=== PATIENT | male | born 1955 | race African-American/Black ===

== ENCOUNTER 2017-01-18 08:35 | Inpatient (IN) | payer OTHER ==
[2017-01-18 09:04] VITALS: BMI 20.3
--- NOTE | 2017-01-18 10:21 | HP ---
Admission [facility] Chief Complaint: I am here to go to rehab and try my best to stay sober. Allergies/Adverse Reactions: Allergies Allergy/AdvReac Type Severity Reaction Status Date / Time Penicillins Allergy Severe Rash Verified 01/18/17 10:02 History of Present Illness: Pt is a 61yr old male with a history of alcohol dependence last drink was three days ago and is here now for rehab. Exam Limitations: Physical Impairment (chronic back pain) - Ebola screening Have you traveled outside of the country in the last 21 days: No Have you had contact with anyone from an Ebola affected area: No Have you been sick,other than usual withdrawal symptoms: No Do you have a fever: No - Review of Systems Constitutional: Loss of Appetite, Changes in sleep, Unintentional Wgt. Loss EENT: reports: No Symptoms Reported Respiratory: reports: No Symptoms reported Cardiac: reports: Syncope (black out) GI: reports: No Symptoms Reported : reports: No Symptoms Reported Musculoskeletal: reports: Back Pain Integumentary: reports: No Symptoms Reported Neuro: reports: Headache Endocrine: reports: No Symptoms Reported Hematology: reports: No Symptoms Reported Psychiatric: reports: Judgement Intact, Mood/Affect Appropiate, Orientated x3 Other Systems: Reviewed and Negative Patient History - Patient Medical History Hx Anemia: No Hx Asthma: No Hx Chronic Obstructive Pulmonary Disease (COPD): No Hx Cancer: No Hx Cardiac Disorders: No Hx Congestive Heart Failure: No Hx Hypertension: Yes (non compliant with meds.) Hx Hypercholesterolemia: No Hx Pacemaker: No HX Cerebrovascular Accident: No Hx Seizures: No Hx Dementia: No Hx Diabetes: No Hx Gastrointestinal Disorders: No Hx Liver Disease: No Hx Genitourinary Disorders: No Hx Sexually Transmitted Disorders: No Hx Renal Disease (ESRD): No Hx Thyroid Disease: No Hx Human Immunodeficiency Virus (HIV): No (negative) Hx Hepatitis C: (negative) Hx Depression: Yes Hx Suicide Attempt: No (denies) Hx Bipolar Disorder: No Hx Schizophrenia: No - Patient Surgical History Past Surgical History: Yes Other Surgical History: benign tumors removed from r shoulder and r hand. - PPD History Previous Implant?: Yes Documented Results: Negative w/o proof Implanted On Prior R Admission?: No PPD to be Administered?: Yes - Reproductive History Patient is a Female of Child Bearing Age (11 -55 yrs old): No - Smoking Cessation Smoking history: Former smoker Have you smoked in the past 12 months: No If you are a former smoker, when did you quit?: 1989 Hx Chewing Tobacco Use: No Initiated information on smoking cessation: No - Substance & Tx. History Hx Alcohol Use: Yes Hx Substance Use: No Substance Use Type: Alcohol Hx Substance Use Treatment: Yes (last detox at [facility] a year ago. ) - Substances Abused Alcohol Route: Oral Frequency: Daily Amount used: 1/2 pint vodka Age of first use: 12 Date of Last Use: 01/15/17 Family Disease History - Family Disease History Family Disease History: Heart Disease: Father (depression), Mother (depression) , Other: Father, Mother Admission Physical Exam [facility] - Vital Signs Vital Signs: Vital Signs - 24 hr 01/18/17 09:01 Temperature 97.3 F L Pulse Rate 69 Respiratory 18 Rate Blood Pressure 174/107 - Physical General Appearance: Yes: Appropriately Dressed, Moderate Distress, Thin, Anxious HEENTM: Yes: Hearing grossly Normal, Normal Voice Respiratory: Yes: Lungs Clear, Normal Breath Sounds, No Respiratory Distress Neck: Yes: No masses,lesions,Nodules Breast: Yes: Within Normal Limits Cardiology: Yes: Regular Rhythm, Regular Rate, S1, S2 Abdominal: Yes: Normal Bowel Sounds, Non Tender, Soft Genitourinary: Yes: Within Normal Limits Back: Yes: Normal Inspection Musculoskeletal: Yes: Back pain Extremities: Yes: Normal Inspection Neurological: Yes: Fully Oriented, Alert, Normal Response Integumentary: Yes: Normal Color Lymphatic: Yes: Within Normal Limits - Diagnostic (1) Alcohol dependence Current Visit: Yes Status: Chronic Qualifiers: Substance use status: uncomplicated Qualified Code(s): F10.20 - Alcohol dependence, uncomplicated (2) Hypertension Current Visit: Yes Status: Chronic Qualifiers: Hypertension type: essential hypertension Qualified Code(s): I10 - Essential (primary) hypertension (3) Weight loss Current Visit: Yes Status: Chronic Cleared for Admission [facility] - Detox or Rehab [facility] Level of Care: Medically Managed Claeared for Rehab Admission: Yes [facility] Breath Alcohol Content Breath Alcohol Content: 0 Urine Drug Screen - Results Drug Screen Negative: Yes
[2017-01-18] MEDS ORDERED: MAGNESIUM HYDROX 2400MG/30ML ORAL SUSPENSION 30 ML CUP PO PRN (10:33)
[2017-01-18] MEDS ORDERED: MAGNESIUM CITRATE 300 ML BOTTLE PO PRN (10:33)
[2017-01-18] MEDS ORDERED: hydrOXYzine PAMOATE 50 MG CAPSULE (FP) PO PRN (10:33)
[2017-01-18] MEDS ORDERED: P-EPHED 60MG/TRIPROLIDI 2.5MG TABLET PO PRN (10:33)
[2017-01-18] MEDS ORDERED: IBUPROFEN 400 MG TABLET (FP) PO PRN (10:33)
[2017-01-18] MEDS ORDERED: MENTHOL/PHENOL 1 EACH UD MM PRN (10:33)
[2017-01-18] MEDS ORDERED: guaiFENesin/D-METHORPHAN HB 10 ML UNIT-DOSE CUPS PO PRN (10:33)
[2017-01-18] MEDS ORDERED: ACETAMINOPHEN 325 MG TABLET (FP) PO PRN (10:33)
[2017-01-18] MEDS ORDERED: LOPERAMIDE HCL 2 MG CAPSULE PO PRN (10:33)
[2017-01-18] MEDS ORDERED: MAG HYDROX/AL HYDROX/SIMETH 30 ML UNIT-DOSE CUP PO PRN (10:33)
[2017-01-18] MEDS ORDERED: NIFEdipine E.R. 30 MG TABLET (FP) PO SCH (10:45)
[2017-01-18] MEDS ORDERED: TUBERCULIN PPD 5 TU/0.1ML VIAL ID ONE (11:53)
--- NOTE | 2017-01-18 11:56 | HP ---
Psychiatrist Admission - Data Date of interview: 01/18/17 Admission source: [facility] Identifying data: This is the first [facility] admission for this 61 years old single Black male, father of 5 daughters, unemployed on social security, domiciled Medical History: Significant for HTN, Herniated Disc/ chronic low back pain and surgery for removal of benign tumor from right shoulder and right hand. Psychiatric History: Denies history of previous psychiatric treatment Physical/Sexual Abuse/Trauma History: Denies histiry of emotional, physical or sexual abuse Additional Comment: Reports 2 previousmisdemeanor arrests Vital Signs: Vital Signs - 24 hr 01/18/17 01/18/17 01/18/17 09:01 10:17 11:51 Temperature 97.3 F L 98.3 F Pulse Rate 69 63 Respiratory 18 19 Rate Blood Pressure 174/107 170/90 182/115 Allergies/Adverse Reactions: Allergies Allergy/AdvReac Type Severity Reaction Status Date / Time Penicillins Allergy Severe Rash Verified 01/18/17 10:02 Date of last physical exam: 01/18/17 Concur with the findings of this exam: Yes - Substance Abuse/Tx History Hx Alcohol Use: Yes Hx Substance Use: No Substance Use Type: Alcohol (Started drinking alcohol at age 12, consumes half a pint of vodka daily. Last drink om 01/15/17) Hx Substance Use Treatment: Yes (2 previous inpt & 2 inpt rehab) - Admission Criteria Previous failed treatment: No Poor recovery environment: Yes Comorbidities: Yes Lacks judgement: Yes Mental Status Exam - Mental Status Exam Alert and Oriented to: Time, Place, Person Cognitive Function: Fair Patient Appearance: Disheveled Mood: Hopeful, Euthymic Patient Behavior: Cooperative Speech Pattern: Clear Voice Loudness: Normal Thought Process: Intact, Goal Oriented Thought Disorder: Not Present Hallucinations: Denies Suicidal Ideation: Denies Homicidal Ideation: Denies Insight/Judgement: Fair Sleep: Poorly Appetite: Good Muscle strength/Tone: Normal Gait/Station: Antalgic (walks with a cane due to LBP from Herniated Disc) Psychiatric Findings - Problem List ([place] 1, 2,3) (1) Alcohol dependence Current Visit: Yes Status: Chronic Qualifiers: Substance use status: uncomplicated Qualified Code(s): F10.20 - Alcohol dependence, uncomplicated (2) Hypertension Current Visit: Yes Status: Chronic Qualifiers: Hypertension type: essential hypertension Qualified Code(s): I10 - Essential (primary) hypertension (3) Herniated disc Current Visit: Yes Status: Acute - Initial Treatment Plan Initial Treatment Plan: 1) Start Trazadone 50 mg po HS. 2) Monitor progress
[2017-01-18] MEDS ORDERED: PNEUMOCOCCAL 23 VACCINE 0.5 ML VIAL IM ONE (12:00)
[2017-01-18 13:53] LABS: MCH 27.4 pg (25.7-33.7); MEAN CELL VOLUME 85.5 fl (80-96); MEAN PLT VOLUME 8.1 fl (7.5-11.1); PLATELET COUNT 267 K/MM3 (134-434); RDW 16.4 % (11.9-15.9); WHITE BLOOD COUNT 6.5 K/mm3 (4.0-10.0)
[2017-01-18 13:54] LABS: URINE APPEARANCE CLEAR; URINE BILIRUBIN NEGATIVE (NEGATIVE); URINE BLOOD NEGATIVE (NEGATIVE); URINE COLOR YELLOW; URINE GLUCOSE (UA) NEGATIVE (NEGATIVE); URINE KETONE NEGATIVE (NEGATIVE); URINE LEUK ESTERASE NEGATIVE (NEGATIVE); URINE NITRITE NEGATIVE (NEGATIVE); URINE UROBILINOGEN NEGATIVE mg/dL (0.2-1.0)
[2017-01-18 14:09] LABS: ALBUMIN 3.9 g/dl (3.4-5.0); ANION GAP 7 (8-16); CALCIUM 9.2 mg/dL (8.5-10.1); CO2 31 mmol/L (21-32); GLUCOSE,RANDOM 100 mg/dL (74-106); SGOT/AST 15 U/L (15-37); SGPT/ALT 13 U/L (12-78)
[2017-01-18 14:11] LABS: ALK PHOS 89 U/L (45-117); BILIRUBIN,TOTAL 0.8 mg/dL (0.2-1.0); CREATININE 1.5 mg/dL (0.7-1.3); TOT PROT 7.7 g/dl (6.4-8.2)
[2017-01-18 14:13] LABS: URINE PROTEIN 1+ (NEGATIVE)
[2017-01-18 14:20] LABS: URINE HYALINE CAST 1 /lpf; URINE MUCUS RARE; URINE RBC <1 /hpf (0-3); URINE WBC 1 /hpf (3-5)
[2017-01-18] MEDS ORDERED: cloNIDine HCL 0.1 MG TABLET PO ONE (14:58)
[2017-01-18] MEDS: THIAMINE HCL 100 MG TABLET (FP) PO SCH (21:31)
[2017-01-18] MEDS: traZODone HCL 50 MG TABLET (FP) PO SCH (21:32)
--- NOTE | 2017-01-19 08:16 | PN ---
S Progress Note Note: EKG REPEAT SHOWED INVERTED T IN 2,3,AVF AND V4 TO V6 PATIENT HAS NO CHEST PAIN,NO SOB,NO DIZZINESS HISTORY OF HTN NON COMPLIANCE STTED USE TO TAKE NIFEDIPINE XL 90 MGS PO DAILY FOR HYPERTENSION ADMITTED AT [facility] 1 YEAR AGO FOR 1 WEEK NON SMOKING ALRT HEEENT NORMAL HEART NORMAL HEART SOUND,S1,S2 LUNG CLEAR NO JVD ABDOMEN SOFT,NO DISTENSION,NO PAIN ,NO TENDERNESS NO CALF TENDERNESS CANE AMBULATION FOR CHRONIC LOW BACK PAIN TREATMENT BLOOD FOR CARDIAC ENZYMES VITAL SIGNS MONITORING CLOSE OBSERVATION NIFEDIPINE ER 90 MGS PO DAILY REPEAT EKG IN AM
[2017-01-19] MEDS: PRENATAL VITAMINS W/ FOLIC ACID TABLET (FP) PO SCH (09:53)
[2017-01-19] MEDS: NIFEdipine E.R. 30 MG TABLET (FP) PO SCH (09:54)
[2017-01-19 10:39] LABS: TROPONIN I < 0.02 ng/ml (0.00-0.05)
[2017-01-19] MEDS ORDERED: PNEUMOC 13-VAL CONJ-DIP CRM/PF 0.5 ML DISP.SYRIN IM ONE (12:00)
[2017-01-19] MEDS: traZODone HCL 50 MG TABLET (FP) PO SCH (21:22)
[2017-01-19] MEDS: THIAMINE HCL 100 MG TABLET (FP) PO SCH (21:22)
[2017-01-20] MEDS: NIFEdipine E.R. 30 MG TABLET (FP) PO SCH (09:00)
[2017-01-20] MEDS: PRENATAL VITAMINS W/ FOLIC ACID TABLET (FP) PO SCH (09:00)
--- NOTE | 2017-01-20 09:54 | PN ---
[facility] Progress Note Note: repeat ekg inverted t in 2,3.avf v4 to v6 no chest pain,no sob,no dizziness Vital Signs Temperature 98.4 F 01/20/17 07:05 Pulse Rate 75 01/20/17 07:05 Respiratory Rate 16 01/20/17 07:05 Blood Pressure 158/96 01/20/17 07:05 O2 Sat by Pulse Oximetry (%) Laboratory Last Values WBC 6.5 K/mm3 (4.0-10.0) 01/18/17 10:50 RBC 3.86 M/mm3 (4.00-5.60) L 01/18/17 10:50 Hgb 10.6 GM/dL (11.7-16.9) L 01/18/17 10:50 Hct 33.0 % (35.4-49) L 01/18/17 10:50 MCV 85.5 fl (80-96) 01/18/17 10:50 MCH 27.4 pg (25.7-33.7) 01/18/17 10:50 MCHC 32.0 g/dl (32.0-35.9) 01/18/17 10:50 RDW 16.4 % (11.9-15.9) H 01/18/17 10:50 Plt Count 267 K/MM3 (134-434) 01/18/17 10:50 MPV 8.1 fl (7.5-11.1) 01/18/17 10:50 Sodium 139 mmol/L (136-145) 01/18/17 10:50 Potassium 4.0 mmol/L (3.5-5.1) 01/18/17 10:50 Chloride 101 mmol/L (98-107) 01/18/17 10:50 Carbon Dioxide 31 mmol/L (21-32) 01/18/17 10:50 Anion Gap 7 (8-16) L 01/18/17 10:50 BUN 23 mg/dL (7-18) H 01/18/17 10:50 Creatinine 1.5 mg/dL (0.7-1.3) H 01/18/17 10:50 Creat Clearance w eGFR 47.27 (>60) 01/18/17 10:50 Random Glucose 100 mg/dL (74-106) 01/18/17 10:50 Calcium 9.2 mg/dL (8.5-10.1) 01/18/17 10:50 Total Bilirubin 0.8 mg/dL (0.2-1.0) 01/18/17 10:50 AST 15 U/L (15-37) 01/18/17 10:50 ALT 13 U/L (12-78) 01/18/17 10:50 Alkaline Phosphatase 89 U/L (45-117) 01/18/17 10:50 Creatine Kinase 108 IU/L (39-308) 01/19/17 08:20 Troponin I < 0.02 ng/ml (0.00-0.05) 01/19/17 08:20 Total Protein 7.7 g/dl (6.4-8.2) 01/18/17 10:50 Albumin 3.9 g/dl (3.4-5.0) 01/18/17 10:50 Urine Color Yellow 01/18/17 11:30 Urine Appearance Clear 01/18/17 11:30 Urine pH 6.0 (5.0-8.0) 01/18/17 11:30 Ur Specific [place] 1.020 (1.005-1.025) 01/18/17 11:30 Urine Protein 1+ (NEGATIVE) H 01/18/17 11:30 Urine Glucose (UA) Negative (NEGATIVE) 01/18/17 11:30 Urine Ketones Negative (NEGATIVE) 01/18/17 11:30 Urine Blood Negative (NEGATIVE) 01/18/17 11:30 Urine Nitrite Negative (NEGATIVE) 01/18/17 11:30 Urine Bilirubin Negative (NEGATIVE) 01/18/17 11:30 Urine Urobilinogen Negative mg/dL (0.2-1.0) 01/18/17 11:30 Ur Leukocyte Esterase Negative (NEGATIVE) 01/18/17 11:30 Urine RBC <1 /hpf (0-3) 01/18/17 11:30 Urine WBC 1 /hpf (3-5) 01/18/17 11:30 Hyaline Casts 1 /lpf 01/18/17 11:30 Urine Mucus Rare 01/18/17 11:30 RPR Titer Nonreactive (NONREACTIVE) 01/18/17 10:50 treatment encourage oral fluid vital signs monitoring continue nifedipine er 90 mgs po daily continue rehab
--- NOTE | 2017-01-20 13:28 | EKG ---
Test Reason : Blood Pressure : / mmHG Vent. Rate : 072 BPM Atrial Rate : 072 BPM P-R Int : 128 ms QRS Dur : 090 ms QT Int : 442 ms P-R-T Axes : 064 016 -67 degrees QTc Int : 483 ms NORMAL SINUS RHYTHM T WAVE ABNORMALITY, CONSIDER INFERIOR ISCHEMIA T WAVE ABNORMALITY, CONSIDER ANTEROLATERAL ISCHEMIA PROLONGED QT ABNORMAL ECG WHEN COMPARED WITH ECG OF 18-JAN-2017 15:08, HI INTERVAL HAS INCREASED ST NO LONGER ELEVATED IN LATERAL LEADS T WAVE INVERSION MORE EVIDENT IN INFERIOR LEADS T WAVE INVERSION NOW EVIDENT IN ANTEROLATERAL LEADS Confirmed by EMMA GRIFFIN, OSCAR ([id number]) on 01/20/2017 1:27:57 PM Referred By: Confirmed By:OSCAR CARTER MD
--- NOTE | 2017-01-20 13:29 | EKG ---
Test Reason : Blood Pressure : / mmHG Vent. Rate : 072 BPM Atrial Rate : 072 BPM P-R Int : 094 ms QRS Dur : 088 ms QT Int : 450 ms P-R-T Axes : -26 012 -30 degrees QTc Int : 492 ms POOR DATA QUALITY, INTERPRETATION MAY BE ADVERSELY AFFECTED SINUS RHYTHM WITH SINUS ARRHYTHMIA WITH SHORT OK VOLTAGE CRITERIA FOR LEFT VENTRICULAR HYPERTROPHY T WAVE ABNORMALITY, CONSIDER INFERIOR ISCHEMIA ABNORMAL ECG NO PREVIOUS ECGS AVAILABLE Confirmed by OSCAR CARTER MD ([id number]) on 01/20/2017 1:28:56 PM Referred By: RENETTA VALENTIN Confirmed By:OSCAR CARTER MD
[2017-01-20] MEDS: traZODone HCL 50 MG TABLET (FP) PO SCH (21:59)
[2017-01-20] MEDS: THIAMINE HCL 100 MG TABLET (FP) PO SCH (21:59)
[2017-01-20] MEDS: HYDROCHLOROTHIAZIDE 25 MG TABLET (FP) PO SCH (21:59)
[2017-01-21] MEDS: HYDROCHLOROTHIAZIDE 25 MG TABLET (FP) PO SCH (09:47)
[2017-01-21] MEDS: PRENATAL VITAMINS W/ FOLIC ACID TABLET (FP) PO SCH (09:47)
[2017-01-21] MEDS: NIFEdipine E.R. 30 MG TABLET (FP) PO SCH (09:47)
--- NOTE | 2017-01-21 12:48 | EKG ---
Test Reason : Blood Pressure : / mmHG Vent. Rate : 078 BPM Atrial Rate : 078 BPM P-R Int : 132 ms QRS Dur : 084 ms QT Int : 418 ms P-R-T Axes : 052 020 -71 degrees QTc Int : 476 ms NORMAL SINUS RHYTHM MINIMAL VOLTAGE CRITERIA FOR LVH, MAY BE NORMAL VARIANT T WAVE ABNORMALITY, CONSIDER INFEROLATERAL ISCHEMIA PROLONGED QT ABNORMAL ECG WHEN COMPARED WITH ECG OF 19-JAN-2017 06:15, NO SIGNIFICANT CHANGE WAS FOUND Confirmed by GISELA CANTRELL MD ([id number]) on 01/21/2017 12:47:32 PM Referred By: Confirmed By:GISELA CANTRELL MD
[2017-01-21] MEDS: THIAMINE HCL 100 MG TABLET (FP) PO SCH (21:28)
[2017-01-21] MEDS: traZODone HCL 50 MG TABLET (FP) PO SCH (21:28)
[2017-01-22] MEDS: HYDROCHLOROTHIAZIDE 25 MG TABLET (FP) PO SCH (09:38)
[2017-01-22] MEDS: PRENATAL VITAMINS W/ FOLIC ACID TABLET (FP) PO SCH (09:38)
[2017-01-22] MEDS: NIFEdipine E.R. 30 MG TABLET (FP) PO SCH (09:38)
[2017-01-22] MEDS: traZODone HCL 50 MG TABLET (FP) PO SCH (21:18)
[2017-01-22] MEDS: THIAMINE HCL 100 MG TABLET (FP) PO SCH (21:18)
[2017-01-23] MEDS: HYDROCHLOROTHIAZIDE 25 MG TABLET (FP) PO SCH (09:37)
[2017-01-23] MEDS: NIFEdipine E.R. 30 MG TABLET (FP) PO SCH (09:37)
[2017-01-23] MEDS: PRENATAL VITAMINS W/ FOLIC ACID TABLET (FP) PO SCH (09:37)
[2017-01-23] MEDS: traZODone HCL 50 MG TABLET (FP) PO SCH (21:35)
[2017-01-23] MEDS: THIAMINE HCL 100 MG TABLET (FP) PO SCH (21:36)
[2017-01-24] MEDS: PRENATAL VITAMINS W/ FOLIC ACID TABLET (FP) PO SCH (09:35)
[2017-01-24] MEDS: NIFEdipine E.R. 30 MG TABLET (FP) PO SCH (09:35)
[2017-01-24] MEDS: HYDROCHLOROTHIAZIDE 12.5 MG CAPSULE (FP) PO SCH (09:35)
[2017-01-24] MEDS: cloNIDine HCL 0.1 MG TABLET PO SCH (09:35)
[2017-01-24] MEDS: traZODone HCL 50 MG TABLET (FP) PO SCH (21:07)
[2017-01-24] MEDS: THIAMINE HCL 100 MG TABLET (FP) PO SCH (21:07)
[2017-01-24] MEDS: diphenhydrAMINE HCL 50 MG CAPSULE PO PRN (21:08)
[2017-01-25] MEDS: HYDROCHLOROTHIAZIDE 12.5 MG CAPSULE (FP) PO SCH (09:36)
[2017-01-25] MEDS: cloNIDine HCL 0.1 MG TABLET PO SCH (09:36)
[2017-01-25] MEDS: PRENATAL VITAMINS W/ FOLIC ACID TABLET (FP) PO SCH (09:36)
[2017-01-25] MEDS: NIFEdipine E.R. 30 MG TABLET (FP) PO SCH (09:36)
[2017-01-25] MEDS: THIAMINE HCL 100 MG TABLET (FP) PO SCH (21:16)
[2017-01-25] MEDS: traZODone HCL 50 MG TABLET (FP) PO SCH (21:16)
[2017-01-26] MEDS: PRENATAL VITAMINS W/ FOLIC ACID TABLET (FP) PO SCH (09:36)
[2017-01-26] MEDS: NIFEdipine E.R. 30 MG TABLET (FP) PO SCH (09:36)
[2017-01-26] MEDS: cloNIDine HCL 0.1 MG TABLET PO SCH (09:36)
[2017-01-26] MEDS: HYDROCHLOROTHIAZIDE 12.5 MG CAPSULE (FP) PO SCH (09:37)
[2017-01-26] MEDS: traZODone HCL 50 MG TABLET (FP) PO SCH (21:23)
[2017-01-26] MEDS: THIAMINE HCL 100 MG TABLET (FP) PO SCH (21:23)
[2017-01-27] MEDS: HYDROCHLOROTHIAZIDE 25 MG TABLET (FP) PO SCH (07:19)
[2017-01-27] MEDS: cloNIDine HCL 0.1 MG TABLET PO SCH (07:19)
[2017-01-27] MEDS: PRENATAL VITAMINS W/ FOLIC ACID TABLET (FP) PO SCH (10:06)
[2017-01-27] MEDS: NIFEdipine E.R. 30 MG TABLET (FP) PO SCH (10:06)
[2017-01-27] MEDS: traZODone HCL 50 MG TABLET (FP) PO SCH (21:16)
[2017-01-27] MEDS: THIAMINE HCL 100 MG TABLET (FP) PO SCH (21:16)
[2017-01-28] MEDS: cloNIDine HCL 0.1 MG TABLET PO SCH (06:30)
[2017-01-28] MEDS: HYDROCHLOROTHIAZIDE 25 MG TABLET (FP) PO SCH (06:30)
[2017-01-28] MEDS: PRENATAL VITAMINS W/ FOLIC ACID TABLET (FP) PO SCH (09:40)
[2017-01-28] MEDS: NIFEdipine E.R. 30 MG TABLET (FP) PO SCH (09:40)
[2017-01-28] MEDS: traZODone HCL 50 MG TABLET (FP) PO SCH (21:24)
[2017-01-28] MEDS: THIAMINE HCL 100 MG TABLET (FP) PO SCH (21:24)
[2017-01-29] MEDS: HYDROCHLOROTHIAZIDE 25 MG TABLET (FP) PO SCH (06:11)
[2017-01-29] MEDS: cloNIDine HCL 0.1 MG TABLET PO SCH (06:11)
[2017-01-29] MEDS: PRENATAL VITAMINS W/ FOLIC ACID TABLET (FP) PO SCH (09:24)
[2017-01-29] MEDS: NIFEdipine E.R. 30 MG TABLET (FP) PO SCH (09:24)
[2017-01-29] MEDS: traZODone HCL 50 MG TABLET (FP) PO SCH (21:13)
[2017-01-29] MEDS: THIAMINE HCL 100 MG TABLET (FP) PO SCH (21:13)
[2017-01-30] MEDS: cloNIDine HCL 0.1 MG TABLET PO SCH (06:08)
[2017-01-30] MEDS: HYDROCHLOROTHIAZIDE 25 MG TABLET (FP) PO SCH (06:09)
[2017-01-30] MEDS: PRENATAL VITAMINS W/ FOLIC ACID TABLET (FP) PO SCH (09:39)
[2017-01-30] MEDS: NIFEdipine E.R. 30 MG TABLET (FP) PO SCH (09:39)
[2017-01-30] MEDS: traZODone HCL 50 MG TABLET (FP) PO SCH (21:46)
[2017-01-30] MEDS: THIAMINE HCL 100 MG TABLET (FP) PO SCH (21:46)
[2017-01-31] MEDS: cloNIDine HCL 0.1 MG TABLET PO SCH (06:16)
[2017-01-31] MEDS: HYDROCHLOROTHIAZIDE 25 MG TABLET (FP) PO SCH (06:17)
[2017-01-31] MEDS: NIFEdipine E.R. 30 MG TABLET (FP) PO SCH (09:36)
[2017-01-31] MEDS: PRENATAL VITAMINS W/ FOLIC ACID TABLET (FP) PO SCH (09:36)
[2017-01-31] MEDS: traZODone HCL 50 MG TABLET (FP) PO SCH (21:16)
[2017-01-31] MEDS: THIAMINE HCL 100 MG TABLET (FP) PO SCH (21:16)
[2017-02-01] MEDS: HYDROCHLOROTHIAZIDE 25 MG TABLET (FP) PO SCH (06:14)
[2017-02-01] MEDS: cloNIDine HCL 0.1 MG TABLET PO SCH (06:14)
[2017-02-01] MEDS: NIFEdipine E.R. 30 MG TABLET (FP) PO SCH (09:56)
[2017-02-01] MEDS: PRENATAL VITAMINS W/ FOLIC ACID TABLET (FP) PO SCH (09:56)
[2017-02-01] MEDS: THIAMINE HCL 100 MG TABLET (FP) PO SCH (20:59)
[2017-02-01] MEDS: traZODone HCL 50 MG TABLET (FP) PO SCH (20:59)
[2017-02-02] MEDS: HYDROCHLOROTHIAZIDE 25 MG TABLET (FP) PO SCH (06:14)
[2017-02-02] MEDS: cloNIDine HCL 0.1 MG TABLET PO SCH (06:14)
[2017-02-02] MEDS: NIFEdipine E.R. 30 MG TABLET (FP) PO SCH (09:41)
[2017-02-02] MEDS: PRENATAL VITAMINS W/ FOLIC ACID TABLET (FP) PO SCH (09:41)
[2017-02-02] MEDS: diphenhydrAMINE HCL 50 MG CAPSULE PO PRN (21:01)
[2017-02-02] MEDS: THIAMINE HCL 100 MG TABLET (FP) PO SCH (21:01)
[2017-02-02] MEDS: traZODone HCL 50 MG TABLET (FP) PO SCH (21:01)
[2017-02-03] MEDS: cloNIDine HCL 0.1 MG TABLET PO SCH (06:09)
[2017-02-03] MEDS: HYDROCHLOROTHIAZIDE 25 MG TABLET (FP) PO SCH (06:09)
[2017-02-03] MEDS: PRENATAL VITAMINS W/ FOLIC ACID TABLET (FP) PO SCH (09:24)
[2017-02-03] MEDS: NIFEdipine E.R. 30 MG TABLET (FP) PO SCH (09:24)
[2017-02-03] MEDS: diphenhydrAMINE HCL 50 MG CAPSULE PO PRN (21:54)
[2017-02-03] MEDS: THIAMINE HCL 100 MG TABLET (FP) PO SCH (21:54)
[2017-02-03] MEDS: traZODone HCL 50 MG TABLET (FP) PO SCH (21:54)
[2017-02-04] MEDS: HYDROCHLOROTHIAZIDE 25 MG TABLET (FP) PO SCH (06:31)
[2017-02-04] MEDS: cloNIDine HCL 0.1 MG TABLET PO SCH (06:31)
[2017-02-04] MEDS: PRENATAL VITAMINS W/ FOLIC ACID TABLET (FP) PO SCH (09:32)
[2017-02-04] MEDS: NIFEdipine E.R. 30 MG TABLET (FP) PO SCH (09:32)
[2017-02-04] MEDS: traZODone HCL 50 MG TABLET (FP) PO SCH (21:29)
[2017-02-04] MEDS: THIAMINE HCL 100 MG TABLET (FP) PO SCH (21:29)
[2017-02-05] MEDS: HYDROCHLOROTHIAZIDE 25 MG TABLET (FP) PO SCH (06:22)
[2017-02-05] MEDS: cloNIDine HCL 0.1 MG TABLET PO SCH (06:22)
[2017-02-05 06:39] VITALS: BP 137/80; PULSE 92; TEMP 98.9
--- NOTE | 2017-02-05 06:48 | PN ---
Psychiatric Progress Note Vital Signs: Vital Signs Period Temp Pulse Resp BP Sys/Barrios Pulse Ox Last 24 Hr 98.9 F 88-92 18-18 137-140/80-93 Date of Session: 02/05/17 Chief Complaint:: Discharge Note HPI: Patient addressing Alcohol Dependence ROS: HTN and Herniated Disc were medically managed Current Medications: Active Medications Generic Name Dose Route Start Last Admin Trade Name Freq PRN Reason Stop Dose Admin Acetaminophen 650 mg 01/18/17 10:33 Tylenol - PO Q4H PRN PAIN Al Hydroxide/Mg Hydroxide 30 ml 01/18/17 10:33 Mylanta Oral Suspension - PO Q6H PRN DYSPEPSIA Clonidine 0.1 mg 01/27/17 07:15 02/05/17 06:22 Catapres - PO 0.1 mg DAILY@0600 SEPIDEH Administration Diphenhydramine HCl 50 mg 01/18/17 10:33 02/03/17 21:54 Benadryl - PO 50 mg HSMR1 PRN Administration INSOMNIA Eucalyptus/Menthol/Phenol/Sorbitol 1 each 01/18/17 10:33 Cepastat Lozenge - MM Q4H PRN SORE THROAT Guaifenesin 10 ml 01/18/17 10:33 Robitussin Dm - PO Q6H PRN COUGH Hydrochlorothiazide 25 mg 01/27/17 07:15 02/05/17 06:22 Hctz - PO 25 mg DAILY@0600 SEPIDEH Administration Hydroxyzine Pamoate 50 mg 01/18/17 10:33 Vistaril - PO Q4H PRN AGITATION Loperamide HCl 4 mg 01/18/17 10:33 Imodium - PO Q6H PRN DIARRHEA Magnesium Citrate 300 ml 01/18/17 10:33 Citroma - PO Q48H PRN CONSTIPATION Magnesium Hydroxide 30 ml 01/18/17 10:33 Milk Of Magnesia - PO DAILY PRN CONSTIPATION Nifedipine 90 mg 01/19/17 10:00 02/04/17 09:32 Procardia Xl - PO 90 mg DAILY SEPIDEH Administration Multivit/Folic Acid/Iron 1 tab 01/19/17 10:00 02/04/17 09:32 Vitamins (Sjr) - PO 1 tab DAILY SEPIDEH Administration Pseudoephedrine/Triprolidine 1 combo 01/18/17 10:33 Actifed - PO TID PRN NASAL CONGESTION Thiamine HCl 100 mg 01/18/17 22:00 02/04/17 21:29 Vitamin B1 - PO 100 mg HS SEPIDEH Administration Trazodone HCl 50 mg 01/18/17 22:00 02/04/17 21:29 Desyrel - PO 50 mg HS SEPIDEH Administration Current Side Effect: No Lab tests ordered: Yes Lab tests reviewed: Yes Provider note:: Patient has completed this program today. He has met his treatment goals and will continue to address his issues in outpatient treatment at [facility]. Told va underwriter that from his participation in this program, he has learned to keep the focus on himself and to make sure whom he surrounds himself with. He responded well to trazadone 50 mg po HS. Script for 30 days supply of that medication is electronicaaly transmitted to [facility] at [address] [place] [address]. He is stable for discharge today Total face to face time:: 35 Mental Status Exam - Mental Status Exam Alert and Oriented to: Time, Place, Person Cognitive Function: Fair Patient Appearance: Well Groomed Mood: Hopeful, Euthymic Affect: Appropriate Patient Behavior: Cooperative Speech Pattern: Clear Voice Loudness: Normal Thought Process: Intact, Goal Oriented Thought Disorder: Not Present Hallucinations: Denies Suicidal Ideation: Denies Homicidal Ideation: Denies Insight/Judgement: Fair Sleep: Fair Appetite: Good Muscle strength/Tone: Normal Gait/Station: Normal Psychiatric Treatment Plan - Problem List (1) Alcohol dependence Current Visit: Yes Qualifiers: Substance use status: uncomplicated Qualified Code(s): F10.20 - Alcohol dependence, uncomplicated (2) Hypertension Current Visit: Yes Qualifiers: Hypertension type: essential hypertension Qualified Code(s): I10 - Essential (primary) hypertension (3) Herniated disc Current Visit: Yes Initial treatment plan: Patient is discharged today and referred to [facility] for outpatient treatment
[2017-02-05] MEDS: PRENATAL VITAMINS W/ FOLIC ACID TABLET (FP) PO SCH (09:50)
[2017-02-05] MEDS: NIFEdipine E.R. 30 MG TABLET (FP) PO SCH (09:50)
== END 2017-02-05 10:03 | disposition home or self-care (01) | DRG 772 ==
LOC: YASAS 08:35 → Y3W 10:46
PROVIDERS: ADMIT Psychiatry & Neurology Psychiatry; ATTEND Psychiatry & Neurology Psychiatry
PROC: HZ42ZZZ Group Counseling for Substance Abuse Treatment, Cognitive-Behavioral (ICD-10-PCS; principal; 2017-01-18)
DX: F10.20 Alcohol dependence, uncomplicated (principal); I10 Essential (primary) hypertension; Z91.14 Patient's other noncompliance with medication regimen; R26.2 Difficulty in walking, not elsewhere classified; Z99.89 Dependence on other enabling machines and devices; M54.5 Low back pain; G89.29 Other chronic pain; Z88.0 Allergy status to penicillin; Z87.898 Personal history of other specified conditions
CPT/HCPCS: 36415; 71010-TC; 80053; 81003; 81015; 82550; 84484; 85027; 86593; 90732; 93005; 93010; G0009